=== PATIENT | male | born 1950 | race Hispanic/Latino ===

== ENCOUNTER 2019-08-03 09:15 | Observation (INO) | payer OTHER ==
[2019-08-03] MEDS ORDERED: NA CHLORIDE 0.9% 1,000 ML ONE (10:18)
[2019-08-03] MEDS ORDERED: MORPHINE 4 MG/ML SYR ONE (10:18)
[2019-08-03] MEDS ORDERED: ONDANSETRON 4 MG/2 ML VIAL ONE ×2 (10:18→13:43)
[2019-08-03] MEDS ORDERED: FAMOTIDINE 20 MG/2 ML VIAL IV ONE (10:18)
[2019-08-03 10:36] LABS: Basophils % 0.1 % (0-1.3); Hematocrit 34.9 % (39.6-49.0); MPV 7.4 fL (7.6-11.3); RBC Red Blood Cell Count 4.12 M/uL (4.33-5.43)
[2019-08-03 10:52] LABS: Albumin 3.8 g/dL (3.4-5.0); Bilirubin Direct 0.3 mg/dL (0-0.2); Bilirubin Total 0.6 mg/dL (0.2-1.0); Protein, Total 6.8 g/dL (6.4-8.2)
--- NOTE | 2019-08-03 11:32 | RAD REPORT ---
EXAM DESCRIPTION: CT - Abdomen Pelvis W Contrast - 08/03/2019 11:12 am CLINICAL HISTORY: Abdominal pain COMPARISON: June 2019 TECHNIQUE: Computed axial tomography of the abdomen pelvis was obtained. 100 cc Isovue-300 was admin istered intravenously. Oral contrast was not requested which limits evaluation of bowel. All CT scans are performed using dose optimization technique as appropriate and may include automated exposure control or mA/KV adjustment according to patient size. FINDINGS: No significant change in the bilateral pulmonary nodules/ masses. Some are cavitary. Patho logic fracture involves an anterior mid right rib. Mild right infrahilar lymphadenopathy The liver, spleen, pancreas, adrenals and right kidney appear unremarkable. Small left renal cyst Small gallstones without gallbladder wall thickening The appendix is normal caliber. There is no evidence of diverticulitis . There is no evidence of diverticulitis. IMPRESSION: No significant change in the metastases involving the chest No acute abnormality involving the abdomen/pelvis
[2019-08-03 12:08] LABS: Blood Morphology Comment NOT SEEN (NOT SEEN); Platelet Estimate ADEQ; Toxic Granulation 1+
--- NOTE | 2019-08-03 13:22 | ER ---
Nurse's Notes [facility] Name: Ez Conrad Age: 68 yrs Sex: Male : 1950 Arrival Date: 08/03/2019 Time: 09:18 Bed 4 Private MD: Tremaine Duke Diagnosis: Dehydration;Gastritis, unspecified Presentation: 08/03 09:31 Presenting complaint: Sister reports that patient has had headaches for a while, but la1 this morning he's been experiencing shortness of breath and headache that wont go away. Transition of care: patient was not received from another setting of care. Onset of symptoms was August 03, 2019. Risk Assessment: Do you want to hurt yourself or someone else? Patient reports no desire to harm self or others. Initial Sepsis Screen: Does the patient meet any 2 criteria? No. Patient's initial sepsis screen is negative. Does the patient have a suspected source of infection? No. Patient's initial sepsis screen is negative. Care prior to arrival: None. 09:31 Method Of Arrival: Wheelchair la1 09:31 Acuity: CHRISTIAN 3 la1 Historical: - Allergies: 09:33 No Known Allergies; la1 - PMHx: 10:55 Hypertension; Cancer; sg - Immunization history:: Adult Immunizations up to date. - Social history:: Smoking status: Patient/guardian denies using tobacco, but has a distant history of tobacco abuse. - Ebola Screening: : Patient denies exposure to infectious person Patient denies travel to an Ebola-affected area in the 21 days before illness onset. - Family history:: not pertinent. Screenin:25 Abuse screen: Denies threats or abuse. Denies injuries from another. Nutritional hb screening: No deficits noted. Tuberculosis screening: No symptoms or risk factors identified. Never had TB. Fall Risk None identified. Assessment: 09:40 General: Appears in no apparent distress. well groomed, well developed, well nourished, sg Behavior is calm, cooperative, appropriate for age. Pain: Denies pain. Neuro: Level of Consciousness is awake, alert, obeys commands, Oriented to person, place, time, Moves all extremities. Gait is steady, Speech is normal, Facial symmetry appears normal. Cardiovascular: Heart tones S1 S2 present Patient's skin is warm and dry. Chest pain is denied. Respiratory: Airway is patent Trachea midline Respiratory effort is even, unlabored, a tracheostomy site noted, appears clean, has a cap in place at this time, no drainage noted Breath sounds are clear. GI: Abdomen is flat, non-distended. : No signs and/or symptoms were reported regarding the genitourinary system. EENT: No signs and/or symptoms were reported regarding the EENT system. Derm: Skin is pink, warm \T\ dry. Musculoskeletal: Circulation, motion, and sensation intact. Range of motion: intact in all extremities, Swelling absent. 10:41 Reassessment: Patient appears in no apparent distress at this time. Patient and/or sg family updated on plan of care and expected duration. Pain level reassessed. Patient is alert, oriented x 3, equal unlabored respirations, skin warm/dry/pink. 12:00 Reassessment: Patient appears in no apparent distress at this time. Patient and/or sg family updated on plan of care and expected duration. Pain level reassessed. Patient is alert, oriented x 3, equal unlabored respirations, skin warm/dry/pink. aware of labs at this time, pt to be admitted, no new orders received at this time. 12:40 Reassessment: Patient appears in no apparent distress at this time. Patient and/or sg family updated on plan of care and expected duration. Pain level reassessed. Patient is alert, oriented x 3, equal unlabored respirations, skin warm/dry/pink. 13:40 Reassessment: Patient appears in no apparent distress at this time. Patient and/or sg family updated on plan of care and expected duration. Pain level reassessed. Patient is alert, oriented x 3, equal unlabored respirations, skin warm/dry/pink. 14:30 Reassessment: Patient appears in no apparent distress at this time. Patient and/or sg family updated on plan of care and expected duration. Pain level reassessed. Patient is alert, oriented x 3, equal unlabored respirations, skin warm/dry/pink. Patient states feeling better. Vital Signs: 09:33 BP 140 / 68; Pulse 90; Resp 18; Temp 98.2(TE); Pulse Ox 99% on R/A; Weight 66.68 kg; la1 Height 5 ft. 5 in. (165.10 cm); Pain 3/10; 10:40 BP 139 / 60; Pulse 64; Resp 17; Pulse Ox 99% on R/A; sg 13:00 BP 160 / 70; Pulse 90; Resp 17; Temp 98.1; Pulse Ox 100% on R/A; Pain 2/10; sg 14:18 BP 142 / 66; Pulse 89; Resp 17; Temp 98.2; Pulse Ox 99% on R/A; ss 09:33 Body Mass Index 24.46 (66.68 kg, 165.10 cm) la1 ED Course: 09:18 Patient arrived in ED. mr 09:18 Tremaine Duke DO is Private Physician. mr 09:32 Triage completed. la1 09:33 Arm band placed on right wrist. la1 09:37 Alexandrea Bermeo MD is Attending Physician. ma2 09:40 Patient has correct armband on for positive identification. Placed in gown. Bed in low sg position. Call light in reach. Side rails up X2. cardiac monitor on. Pulse ox on. NIBP on. Warm blanket given. Head of bed elevated. 09:44 Alex Jernigan, CHIARA is Primary Nurse. sg 10:18 Radiology exam delayed due to lab results not completed at this time. (BUN/Creatinine). vm2 10:30 No provider procedures requiring assistance completed. Initial lab(s) drawn, by me, hb sent to lab. Inserted saline lock: 20 gauge in right antecubital area, using aseptic technique. Blood collected. 11:12 CT completed. Patient tolerated procedure well. Patient moved back from CT. vm2 11:13 CT Abd/Pelvis - IV Contrast Only In Process Unspecified. EDMS 12:25 First set of blood cultures drawn by me. dh3 12:40 Second set of blood cultures drawn by me. dh3 13:17 Edgar Maria MD is Hospitalizing Provider. ma2 14:30 Patient admitted, IV remains in place. intact, No redness/swelling at site. sg Administered Medications: 10:23 Drug: Zofran 4 mg Route: IVP; Site: right antecubital; sg 11:00 Follow up: Response: No adverse reaction sg 10:25 Drug: morphine 4 mg Route: IVP; Site: right antecubital; sg 11:00 Follow up: Response: No adverse reaction; Pain is decreased; RASS: Alert and Calm (0) sg 10:30 Drug: NS 0.9% 1000 ml Route: IV; Rate: 1 bolus; Site: right antecubital; sg 11:32 Follow up: Response: No adverse reaction; IV Status: Completed infusion; IV Intake: sg 1000ml 10:30 Drug: Pepcid 20 mg Route: IVP; Site: right antecubital; sg 11:00 Follow up: Response: No adverse reaction sg 13:40 Drug: Pantoprazole 40 mg Route: IVP; Site: right antecubital; sg 14:15 Follow up: Response: No adverse reaction sg 13:40 Drug: Zofran 4 mg Route: IVP; Site: right antecubital; sg 14:15 Follow up: Response: No adverse reaction sg Intake: 11:32 IV: 1000ml; Total: 1000ml. sg Outcome: 13:17 Decision to Hospitalize by Provider. ma2 14:36 Admitted to Tele accompanied by tech, via wheelchair, room 412, with chart, Report sg called to CHIARA Reyes 14:36 Condition: good 14:36 Instructed on the need for admit, medication usage, safety practices, Demonstrated understanding of instructions, follow-up care. 14:38 Patient left the ED. sg Signatures: Dispatcher [employer] EDMS Alex Jernigan RN RN sg Rivera, Mary Xiomy Nick RN RN Johnathan Zapata RN RN la1 Baxter, Heather, RN RN hb McGuire, Victoria vm2 Herrera, Deanna dh3 Alzahri, Mohammad, MD MD nj2
--- NOTE | 2019-08-03 13:22 | EDPHYS ---
Physician Documentation [facility] Name: Ez Conrad Age: 68 yrs Sex: Male : 1950 Arrival Date: 08/03/2019 Time: 09:18 Bed 4 Private MD: Tremaine Duke ED Physician Alexandrea Bermeo HPI: 08/03 10:08 This 68 yrs old Male presents to ER via Wheelchair with complaints of ma2 Breathing Difficulty, Abdominal Pain, Headache. 13:13 Onset: The symptoms/episode began/occurred gradually, 2 day(s) ago. ma2 Historical: - Allergies: 09:33 No Known Allergies; la1 - PMHx: 10:55 Hypertension; Cancer; sg - Immunization history:: Adult Immunizations up to date. - Social history:: Smoking status: Patient/guardian denies using tobacco, but has a distant history of tobacco abuse. - Ebola Screening: : Patient denies exposure to infectious person Patient denies travel to an Ebola-affected area in the 21 days before illness onset. - Family history:: not pertinent. ROS: 13:14 Eyes: Negative for injury, pain, redness, and discharge, Neck: Negative for injury, ma2 pain, and swelling, Cardiovascular: Negative for chest pain, palpitations, and edema, Respiratory: Negative for shortness of breath, cough, wheezing, and pleuritic chest pain, Abdomen/GI: Negative for abdominal pain, nausea, diarrhea, and constipation. 13:14 Constitutional: Positive for malaise, poor PO intake, weight loss. 13:14 All other systems are negative. Exam: 13:14 Constitutional: This is a well developed, well nourished patient who is awake, alert, ma2 and in no acute distress. Eyes: Pupils equal round and reactive to light, extra-ocular motions intact. Lids and lashes normal. Conjunctiva and sclera are non-icteric and not injected. Cornea within normal limits. Periorbital areas with no swelling, redness, or edema. ENT: trach in good order, skin dry.. Nares patent. No nasal discharge, no septal abnormalities noted. Tympanic membranes are normal and external auditory canals are clear. Oropharynx with no redness, swelling, or masses, exudates, or evidence of obstruction, uvula midline. Mucous membranes moist. Neck: Trachea midline, no thyromegaly or masses palpated, and no cervical lymphadenopathy. Supple, full range of motion without nuchal rigidity, or vertebral point tenderness. No Meningismus. Chest/axilla: Normal chest wall appearance and motion. Nontender with no deformity. No lesions are appreciated. Cardiovascular: Regular rate and rhythm with a normal S1 and S2. No gallops, murmurs, or rubs. Normal PMI, no JVD. No pulse deficits. Respiratory: Lungs have equal breath sounds bilaterally, clear to auscultation and percussion. No rales, rhonchi or wheezes noted. No increased work of breathing, no retractions or nasal flaring. Abdomen/GI: Soft, non-tender, with normal bowel sounds. No distension or tympany. No guarding or rebound. No evidence of tenderness throughout. Skin: Warm, dry with normal turgor. Normal color with no rashes, no lesions, and no evidence of cellulitis. MS/ Extremity: Pulses equal, no cyanosis. Neurovascular intact. Full, normal range of motion. Neuro: Awake and alert, GCS 15, oriented to person, place, time, and situation. Cranial nerves II-XII grossly intact. Motor strength 5/5 in all extremities. Sensory grossly intact. Cerebellar exam normal. Normal gait. Vital Signs: 09:33 BP 140 / 68; Pulse 90; Resp 18; Temp 98.2(TE); Pulse Ox 99% on R/A; Weight 66.68 kg; la1 Height 5 ft. 5 in. (165.10 cm); Pain 3/10; 10:40 BP 139 / 60; Pulse 64; Resp 17; Pulse Ox 99% on R/A; sg 13:00 BP 160 / 70; Pulse 90; Resp 17; Temp 98.1; Pulse Ox 100% on R/A; Pain 2/10; sg 14:18 BP 142 / 66; Pulse 89; Resp 17; Temp 98.2; Pulse Ox 99% on R/A; ss 09:33 Body Mass Index 24.46 (66.68 kg, 165.10 cm) la1 MDM: 12:51 Patient medically screened. ma2 13:14 Differential diagnosis: Anemia Bronchitis reactive airway disease, dehydration, ma2 gastritis, discussed with dr. johnson and dr. house. Data reviewed: vital signs, nurses notes. Counseling: I had a detailed discussion with the patient and/or guardian regarding: the historical points, exam findings, and any diagnostic results supporting the discharge/admit diagnosis, the presence of at least one elevated blood pressure reading (>120/80) during this emergency department visit, the need for further work-up and treatment in the hospital. 08/03 10:10 Order name: Basic Metabolic Panel; Complete Time: 11:27 ma2 08/03 10:10 Order name: CBC with Diff; Complete Time: 12:16 ma2 08/03 10:10 Order name: Creatinine for Radiology; Complete Time: 11:28 ma2 08/03 10:10 Order name: Hepatic Function; Complete Time: 11:27 ma2 08/03 10:10 Order name: Lipase; Complete Time: 11:28 ma2 08/03 11:30 Order name: Blood Culture Adult (2) la2 08/03 10:10 Order name: CT Abd/Pelvis - IV Contrast Only; Complete Time: 13:08 la2 08/03 12:08 Order name: Manual Differential; Complete Time: 12:16 EDMS 08/03 13:23 Order name: CBC with Automated Diff EDMS 08/03 13:23 Order name: Comprehensive Metabolic Panel EDMS 08/03 10:10 Order name: IV Saline Lock; Complete Time: 10:35 ma2 08/03 10:10 Order name: Labs collected and sent; Complete Time: 10:36 ma2 08/03 13:23 Order name: CONS Pharmacy Consult EDMI 08/03 13:23 Order name: NPO EDMS Administered Medications: 10:23 Drug: Zofran 4 mg Route: IVP; Site: right antecubital; sg 11:00 Follow up: Response: No adverse reaction sg 10:25 Drug: morphine 4 mg Route: IVP; Site: right antecubital; sg 11:00 Follow up: Response: No adverse reaction; Pain is decreased; RASS: Alert and Calm (0) sg 10:30 Drug: NS 0.9% 1000 ml Route: IV; Rate: 1 bolus; Site: right antecubital; sg 11:32 Follow up: Response: No adverse reaction; IV Status: Completed infusion; IV Intake: sg 1000ml 10:30 Drug: Pepcid 20 mg Route: IVP; Site: right antecubital; sg 11:00 Follow up: Response: No adverse reaction sg 13:40 Drug: Pantoprazole 40 mg Route: IVP; Site: right antecubital; sg 14:15 Follow up: Response: No adverse reaction sg 13:40 Drug: Zofran 4 mg Route: IVP; Site: right antecubital; sg 14:15 Follow up: Response: No adverse reaction sg Disposition: 08/03/19 13:17 Hospitalization ordered by Edgar Maria for Observation. Preliminary diagnosis are Dehydration, Gastritis, unspecified. - Bed requested for Telemetry/MedSurg (observation). - Status is Observation. sg - Condition is Stable. - Problem is new. - Symptoms are unchanged. UTI on Admission? No Signatures: Dispatcher [employer] Naomi Miranda RN RN dw Gay, Steven, RN RN sg Attema, Lee, RN RN la1 Alexandrea Bermeo MD MD ma2 Corrections: (The following items were deleted from the chart) 13:17 13:17 Hospitalization Ordered by Edgar Maria MD for Observation. Preliminary ma2 diagnosis is Dehydration; Gastritis, unspecified. Bed requested for Telemetry/MedSurg (Inpatient). Status is Observation. Condition is Stable. Problem is new. Symptoms are unchanged. UTI on Admission? No. ma2 13:38 13:17 08/03/2019 13:17 Hospitalization Ordered by Edgar Maria MD for Observation. dw Preliminary diagnosis is Dehydration; Gastritis, unspecified. Bed requested for Telemetry/MedSurg (observation). Status is Observation. Condition is Stable. Problem is new. Symptoms are unchanged. UTI on Admission? No. ma2 14:38 13:38 08/03/2019 13:17 Hospitalization Ordered by Edgar Maria MD for Observation. sg Preliminary diagnosis is Dehydration; Gastritis, unspecified. Bed requested for Telemetry/MedSurg (observation). Status is Observation. Condition is Stable. Problem is new. Symptoms are unchanged. UTI on Admission? No. dw
[2019-08-03] MEDS ORDERED: PANTOPRAZOLE 40 MG INJ ONE (13:43)
[2019-08-03 15:21] VITALS: BMI 24.4
[2019-08-03] MEDS: MORPHINE 2 MG/ML SYR IV PRN ×2 (15:42→20:19)
[2019-08-03] MEDS: D5.45NS W/KCL 20MEQ 1,000 ML IV SCH (15:46)
--- NOTE | 2019-08-03 16:22 | P.HP ---
Certification for Inpatient Patient admitted to: Observation With expected LOS: <2 Midnights Patient will require the following post-hospital care: None Practitioner: I am a practitioner with admitting privileges, knowledge of patient current condition, hospital course, and medical plan of care. Services: Services provided to patient in accordance with Admission requirements found in Title 42 Section 412.3 of the Code of Federal Regulations Patient History Date of Service: 08/03/19 Reason for admission: Nausea and headache History of Present Illness: Patient is 68 years of age with throat cancer with mets to the lung he apparently had chemotherapy last Sunday has been very sick since then lack of appetite and some shortness of breath headaches patient has a trach denies any fever chills cough sputum hemoptysis or chest pain no diarrhea white count was very elevated Allergies No Known Allergies Allergy (Verified 05/11/17 10:42) Home Medications: Fenofibrate [Tricor] 145 mg PO DAILY 01/25/16 Metformin HCl [Glucophage] 500 mg PO BIDWM 01/25/16 Pravastatin [Pravachol] 40 mg PO DAILY 01/25/16 Amlodipine [Norvasc*] 5 mg PO DAILY 08/03/19 Levothyroxine [Synthroid*] 112 mcg PO DAILY 08/03/19 Losartan Potassium [Cozaar] 50 mg PO DAILY 08/03/19 - Past Medical/Surgical History Diabetic: Yes -: hypertension -: throat cancer -: tracheostomy -: feeding tuibe insertion - Social History Smoking Status: Former smoker Alcohol use: No CD- Drugs: No Caffeine use: Yes Place of Residence: Home Review of Systems General: Weakness, Malaise Respiratory: Shortness of Breath Gastrointestinal: Nausea Neurological: Weakness Physical Examination - Vital Signs Temperature: 97.1 F Blood Pressure: 169/77 Pulse: 89 Respirations: 18 Pulse Ox (%): 99 - Physical Exam General: Alert, In no apparent distress, Oriented x3 Neck: Supple Respiratory: Clear to auscultation bilaterally, Diminished Cardiovascular: No edema, Normal pulses Gastrointestinal: Normal bowel sounds, Soft and benign Musculoskeletal: No clubbing, No swelling Integumentary: No rashes, No breakdown - Studies Laboratory Data (last 24 hrs) 08/03/19 10:24: Creatinine 0.97 08/03/19 10:24: WBC 49.8 H*, Hgb 12.4 L, Hct 34.9 L, Plt Count 235 11/10/19 10:24: Sodium 135 L, Potassium 3.0 L, BUN 20 H, Creatinine 0.97, Glucose 149 H, Total Bilirubin 0.6, AST 13 L, ALT 13, Alkaline Phosphatase 105, Lipase 53 L Assessment and Plan - Problems (Diagnosis) (1) Adverse effect of chemotherapy Current Visit: Yes Status: Acute Plan: Patient is 68 years of age. Status post chemotherapy on Sunday he has cut throat cancer has a tracheostomy with mets to the lungs complaining of nausea headache lack of appetite patient's white count is significantly elevated chemistries unremarkable no acute abnormalities on CT scan of the abdomen he does have chronic mets to the lungs patient is hypokalemic potassium replacement patient does not want to be resuscitated I have also ordered some Rocephin urinalysis is pending Qualifiers: Encounter type: initial encounter Qualified Code(s): T45.1X5A - Adverse effect of antineoplastic and immunosuppressive drugs, initial encounter Discharge Plan: Home - Advance Directives Does patient have a Living Will: No Does patient have a Durable POA for Healthcare: No - Code Status/Comfort Care Code Status: Do Not Attempt Resuscitat
[2019-08-03] MEDS: CEFTRIAXONE/SWI 1gm 1 GM/10 ML SYR IVP SCH (16:44)
[2019-08-03] MEDS ORDERED: GLUCAGON 1 MG/VIAL IM PRN (16:59)
[2019-08-03] MEDS ORDERED: D50W 25 GM/50 ML SYRINGE/VIAL IV PRN (16:59)
[2019-08-03] MEDS ORDERED: KCL 20 MEQ/100 mL IVPB 20 MEQ/100 ML BAG IV SCH (17:00)
[2019-08-03] MEDS: ONDANSETRON 4 MG/2 ML VIAL IV PRN (19:48)
[2019-08-03 20:25] LABS: Urine Appearance TURBID; Urine Bilirubin NEGATIVE (NEG); Urine Blood NEGATIVE (NEG); Urine Color YELLOW; Urine Glucose 1+ (NEG); Urine Protein NEGATIVE (NEG); Urine Specific Gravity >=1.030 (1.005-1.030); Urine pH 7.5 (5.0-7.0)
[2019-08-03 20:28] LABS: Urine Microscopic Reflex ORDER UMIC
[2019-08-03 20:36] LABS: Urine Amorphous Sediment 1+ /HPF (NONE SEEN); Urine Bacteria >50 /HPF (NONE SEEN); Urine Culture Reflex Order REFLEXED; Urine RBC <5 /HPF (NONE SEEN)
[2019-08-03] MEDS: INSULIN -REGULAR HUMAN 50 UNIT/0.5 ML ML SQ SCH (21:00)
--- NOTE | 2019-08-03 21:16 | P.PN ---
Subjective Date of Service: 08/03/19 Chief Complaint: Nausea and headache Physical Examination - Vital Signs Temperature: 98.2 F Blood Pressure: 131/69 Pulse: 76 Respirations: 22 Pulse Ox (%): 98 - Studies Laboratory Data (last 24 hrs) 08/03/19 10:24: Creatinine 0.97 08/03/19 10:24: WBC 49.8 H*, Hgb 12.4 L, Hct 34.9 L, Plt Count 235 08/03/19 10:24: Sodium 135 L, Potassium 3.0 L, BUN 20 H, Creatinine 0.97, Glucose 149 H, Total Bilirubin 0.6, AST 13 L, ALT 13, Alkaline Phosphatase 105, Lipase 53 L Assessment & Plan Physician Review Additional Text: Impression: Nausea/Headaches with poor intake likely related to Chemotherapy Throat cancer Stage 4 with mets to the lung on Chemotherapy Leukocytosis likely related to recent Chemotherapy DM Type 2 non insulin dependent HTN Hyperlipidemia Hypothyroidism
[2019-08-04] MEDS: MORPHINE 2 MG/ML SYR IV PRN ×3 (00:31→09:41)
[2019-08-04 04:38] LABS: ALT/SGPT 11 U/L (12-78); AST/SGOT 10 U/L (15-37); Albumin 3.3 g/dL (3.4-5.0); Alkaline Phosphatase 127 U/L (45-117); BUN Blood Urea Nitrogen 12 mg/dL (7-18); Bicarbonate 25 mmol/L (21-32); Bilirubin Total 0.6 mg/dL (0.2-1.0); Glucose Level 148 mg/dL (74-106); Potassium 3.2 mmol/L (3.5-5.1); Sodium Level 137 mmol/L (136-145)
[2019-08-04 04:46] LABS: Absolute Lymphocytes (CBC) 0.9 K/uL (0.7-4.9); Basophils % 0.1 % (0-1.3); Hematocrit 30.8 % (39.6-49.0); Lymphocytes % 1.8 % (15.3-44.8); MPV 7.7 fL (7.6-11.3); RBC Red Blood Cell Count 3.61 M/uL (4.33-5.43)
[2019-08-04] MEDS: D5.45NS W/KCL 20MEQ 1,000 ML IV SCH ×2 (05:22→10:00)
[2019-08-04] MEDS: ONDANSETRON 4 MG/2 ML VIAL IV PRN (05:22)
--- OUTSIDE RECORDS SUMMARY | 2019-08-04 07:06 | XMS REPORT ---
:1950 Author Organization [facility] Address [address] [place] [address] Dr. Farrell [address] [place] [id number] Care Team Providers Name Role Phone Unavailable Unavailable Unavailable Problems This patient has no known problems. Allergies, Adverse Reactions, Alerts This patient has no known allergies or adverse reactions. Medications This patient has no known medications. Encounters Start End Encounter Admission Attending Care Care Encounter Date/Time Date/Time Type Type Clinicians Facility Department ID 2019-07-21 2019-07-[address] [facility] [id number] 12:02:00 12:02:00
[2019-08-04] MEDS: INSULIN -REGULAR HUMAN 50 UNIT/0.5 ML ML SQ SCH ×3 (07:30→16:30)
[2019-08-04] MEDS ORDERED: POTASSIUM 25 MEQ EFFERV TAB PO ONE (08:00)
[2019-08-04 08:04] VITALS: O2SAT 97
[2019-08-04] MEDS: CEFTRIAXONE/SWI 1gm 1 GM/10 ML SYR IVP SCH (08:06)
--- NOTE | 2019-08-04 13:56 | P.DS ---
Admission Date: 08/03/19 Discharge Date: 08/04/19 Primary Care Provider: Dr. Duke; Oncology-Dr. Rodrigez Disposition: ROUTINE DISCHARGE Discharge Condition: GOOD Reason for Admission: Nausea and headache Consultations: none Procedures: CT scan: FINDINGS: No significant change in the bilateral pulmonary nodules/ masses. Some are cavitary. Pathologic fracture involves an anterior mid right rib. Mild right infrahilar lymphadenopathy The liver, spleen, pancreas, adrenals and right kidney appear unremarkable. Small left renal cyst Small gallstones without gallbladder wall thickening The appendix is normal caliber. There is no evidence of diverticulitis. There is no evidence of diverticulitis. 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 Patient presented with increased nausea, vomiting and poor oral intake. Patient had chemotherapy recently. Patient appeared dehydrated. Patient came to the ER for further evaluation. Hospital Course: Patient presented with nausea, vomiting and poor appetite. Patient recently had chemotherapy for stage IV throat cancer with metastasis to the lung. Patient found to have elevated white count. Patient received IV fluids. Oral intake was monitored closely. Case discussed with oncology. Chemotherapy has a tendency to cause GI related issues. Patient was observed. Patient now with good oral intake. At discharge patient may continue with Zofran 4 mg 3 times a day as needed for nausea. Recommend follow up with oncology within 1 week. Recommend to recheck lab-CBC, BMP to further monitor. At discharge patient stable for discharge. No significant abdominal pain noted scan unremarkable. Patient with hypertension, diabetes mellitus type 2, [id number], hyperlipidemia and hypothyroidism. Patient will resume his home medications. Vital Signs/Physical Exam: Temp Pulse Resp BP Pulse Ox 97.8 F 75 26 H 157/71 H 100 08/04/19 12:00 08/04/19 12:00 08/04/19 12:00 08/04/19 12:00 08/04/19 12:00 General: Alert, In no apparent distress, Cooperative HEENT: Atraumatic Neck: Other (Neck shows inflammation to the neck region.) Respiratory: Clear to auscultation bilaterally Cardiovascular: Normal pulses, Regular rate/rhythm Gastrointestinal: Normal bowel sounds, Soft and benign, Non-distended Musculoskeletal: No erythema, No tenderness, No warmth Integumentary: No tenderness/swelling, No erythema, No warmth, No cyanosis Laboratory Data at Discharge: WBC 49.4 K/uL (4.3-10.9) H* 08/04/19 03:30 Hgb 10.6 g/dL (13.6-17.9) L 08/04/19 03:30 Hct 30.8 % (39.6-49.0) L 08/04/19 03:30 Plt Count 181 K/uL (152-406) D 08/04/19 03:30 Sodium 137 mmol/L (136-145) 08/04/19 03:30 Potassium 3.2 mmol/L (3.5-5.1) L 08/04/19 03:30 BUN 12 mg/dL (7-18) 08/04/19 03:30 Creatinine 0.74 mg/dL (0.55-1.3) 08/04/19 03:30 Glucose 148 mg/dL (74-106) H 08/04/19 03:30 Total Bilirubin 0.6 mg/dL (0.2-1.0) 08/04/19 03:30 AST 10 U/L (15-37) L 08/04/19 03:30 ALT 11 U/L (12-78) L 08/04/19 03:30 Alkaline Phosphatase 127 U/L (45-117) H 08/04/19 03:30 Lipase 53 U/L (73-393) L 08/03/19 10:24 Home Medications: Fenofibrate [Tricor*] 145 mg PO DAILY 01/25/16 Metformin HCl [Glucophage*] 500 mg PO BIDWM 01/25/16 Pravastatin [Pravachol*] 40 mg PO DAILY 01/25/16 Amlodipine [Norvasc*] 5 mg PO DAILY 08/03/19 Levothyroxine [Synthroid*] 112 mcg PO DAILY 08/03/19 Losartan Potassium [Cozaar] 50 mg PO DAILY 08/03/19 Ondansetron [Zofran] 4 mg PO Q6H PRN #10 tab 08/04/19 New Medications: Ondansetron [Zofran] 4 mg PO Q6H PRN #10 tab PRN Reason: Nausea / Vomiting Patient Discharge Instructions: 1. Recommend follow up with his PCP in 1 week to monitor his progress. 2. Patient presented with nausea, poor intake likely related to recent chemotherapy. Encourage oral intake. Monitor fluid intake. The peak Zofran 4 mg 1 pill 3 times a day as needed for nausea. Recommend recheck lab-CBC, BMP in 1 week to monitor his progress. Recommend follow up with oncology to further address. 3. Patient with history of diabetes, hypertension, hyperlipidemia and hypothyroidism. Patient will resume his home medications. Diet: GI soft diet Activity: Ad rupert Time spent managing pt's care (in minutes): 55
[2019-08-04] MEDS ORDERED: POTASSIUM CL SA 10 MEQ TAB PO ONE (16:34)
[2019-08-04 16:52] VITALS: BP 162/70; TEMP 97.7
[2019-08-04] MEDS ORDERED: METFORMIN HCL 500 MG TAB PO SCH (17:00)
[2019-08-04] MEDS ORDERED: ATORVASTATIN 10 MG TAB PO SCH (21:00)
[2019-08-04] MEDS ORDERED: GLUCERNA SHAKE 237 ML CAN PO SCH (21:00)
[2019-08-05] MEDS ORDERED: LEVOTHYROXINE SOD 0.112 MG TAB PO SCH (06:30)
[2019-08-05] MEDS ORDERED: AMLODIPINE 5 MG TAB PO SCH (09:00)
[2019-08-05] MEDS ORDERED: FENOFIBRATE 160 MG TAB PO SCH (09:00)
[2019-08-05] MEDS ORDERED: LOSARTAN POTASSIUM 50 MG TABLET PO SCH (09:00)
== END 2019-08-04 18:26 | disposition home or self-care (01) ==
LOC: SUPCPDRO 09:15 → ER 09:15 → ERHOLD 13:20 → 4TH 14:19
PROVIDERS: ADMIT Internal Medicine Sleep Medicine; ATTEND Internal Medicine Sleep Medicine
DX: R11.2 Nausea with vomiting, unspecified (principal); R63.0 Anorexia; Z68.24 Body mass index [BMI] 24.0-24.9, adult; C14.0 Malignant neoplasm of pharynx, unspecified; C78.00 Secondary malignant neoplasm of unspecified lung; D72.829 Elevated white blood cell count, unspecified; I10 Essential (primary) hypertension; E11.9 Type 2 diabetes mellitus without complications; E78.5 Hyperlipidemia, unspecified; E03.9 Hypothyroidism, unspecified; Z87.891 Personal history of nicotine dependence
CPT/HCPCS: 96361; 87040 ×2; 87088; 85025 ×2; 87086; 80048; 36415 ×2; 84132; 82947 ×5; 80076; 83605; 83690; 80053; 84145; 74177; 94760 ×2; 96375; 96374; 99285; Q9967; C9113; J2270 ×5; J0696 ×2; J7030; J2405 ×4; G0378 ×3; 81003; 81015

== ENCOUNTER 2019-08-31 10:05 | Inpatient (IN) | payer OTHER ==
--- OUTSIDE RECORDS SUMMARY | 2019-08-31 10:07 | XMS REPORT ---
:1950 [facility] Address [address] [place] [address] Dr. Farrell [address] [place] [id number] Care Team Providers Name Role Phone Unavailable Unavailable Unavailable Problems This patient has no known problems. Allergies, Adverse Reactions, Alerts This patient has no known allergies or adverse reactions. Medications This patient has no known medications. Encounters Start End Encounter Admission Attending Care Care Encounter Date/Time Date/Time Type Type Clinicians Facility Department ID 2019-07-21 2019-07-21 Outpatient [facility] MED [id number] 12:02:00 12:02:00
[2019-08-31] MEDS ORDERED: DIPHENHYDRAMINE 50 MG/ML VIAL ONE (10:56)
[2019-08-31] MEDS ORDERED: NA CHLORIDE 0.9% 1,000 ML ONE ×2 (10:56→11:49)
[2019-08-31] MEDS ORDERED: METOCLOPRAMIDE 10 MG/2mL INJ ONE (10:56)
[2019-08-31] MEDS ORDERED: MORPHINE 4 MG/ML SYR ONE (11:06)
[2019-08-31 11:08] LABS: Absolute Lymphocytes (CBC) 0.5 K/uL (0.7-4.9); Basophils % 0.2 % (0-1.3); Hematocrit 35.6 % (39.6-49.0); Lymphocytes % 0.6 % (15.3-44.8); MPV 7.9 fL (7.6-11.3); RBC Red Blood Cell Count 4.12 M/uL (4.33-5.43)
[2019-08-31 11:33] LABS: Albumin 4.1 g/dL (3.4-5.0); Bilirubin Direct 0.7 mg/dL (0-0.2); Bilirubin Total 1.3 mg/dL (0.2-1.0); Protein, Total 7.1 g/dL (6.4-8.2); Troponin (Emerg Dept Use Only) 0.02 ng/mL (0.0-0.045)
[2019-08-31 11:35] LABS: Potassium 2.1 mmol/L (3.5-5.1)
[2019-08-31] MEDS ORDERED: KCL 20 MEQ/100 mL IVPB 20 MEQ/100 ML BAG IV ONE (11:49)
[2019-08-31 11:57] LABS: Blood Morphology Comment NOTED (NOT SEEN); Platelet Estimate ADEQ
--- NOTE | 2019-08-31 13:13 | EDPHYS ---
Physician Documentation [facility] Name: Ez Conrad Age: 68 yrs Sex: Male : 1950 Arrival Date: 08/31/2019 Time: 10:08 Bed 18 Private MD: ED Physician Rayshawn Matos HPI: 08/31 10:30 This 68 yrs old Male presents to ER via Ambulatory with complaints of jmm Dehydrated. 10:30 This is a 68 year old male with a history of htn, throat cancer that presents to the ED jmm with complaints of vomiting, decreased appetite. Most recent chemotherapy was approx 1 week. Denies fever but complains of chills. Denies abdominal pain. Family states the patient has had decreased appetite. Symptoms are not relieved with home antiemetics. . Historical: - Allergies: 10:18 No Known Allergies; sg - Home Meds: 10:18 Zofran Oral [Active]; Phenergan Oral [Active]; sg - PMHx: 10:18 Cancer; Hypertension; sg - PSHx: 10:18 Tracheostomy; sg - Immunization history:: Adult Immunizations up to date. - Social history:: Smoking status: Patient/guardian denies using tobacco. - Ebola Screening: : Patient negative for fever greater than or equal to 101.5 degrees Fahrenheit, and additional compatible Ebola Virus Disease symptoms Patient denies exposure to infectious person Patient denies travel to an Ebola-affected area in the 21 days before illness onset No symptoms or risks identified at this time. ROS: 10:35 Constitutional: Positive for chills. jmm 10:35 Abdomen/GI: Positive for nausea, vomiting. 10:35 All other systems are negative. Exam: 10:35 Constitutional: This is a well developed, well nourished patient who is awake, alert, jmm and in no acute distress. Head/Face: atraumatic. Eyes: EOMI, no conjunctival erythema appreciated ENT: Moist Mucus Membranes Neck: Trachea midline, Supple Chest/axilla: Normal chest wall appearance and motion. Cardiovascular: Regular rate and rhythm. No edema appreciated Respiratory: Normal respirations, no respiratory distress appreciated Abdomen/GI: Non distended, soft Back: Normal ROM Skin: General appearance color normal MS/ Extremity: Moves all extremities, no obvious deformities appreciated, no edema noted to the lower extremities Neuro: Awake and alert, normal gait Psych: Behavior is normal, Mood is normal, Patient is cooperative and pleasant Vital Signs: 10:21 BP 134 / 69; Pulse 109; Resp 17; Temp 97.2; Pulse Ox 100% on R/A; Weight 52.16 kg (R); sg Pain 0/10; 11:00 BP 177 / 71; Pulse 89; Resp 18; Pulse Ox 97% on R/A; Pain 7/10; em 11:45 BP 147 / 68; Pulse 91; Resp 14; Pulse Ox 96% on 2 lpm NC; Pain 0/10; em 12:30 BP 138 / 77; Pulse 97; Resp 16; Pulse Ox 100% on 2 lpm NC; Pain 0/10; em 13:50 BP 162 / 88; Pulse 98; Resp 16; Pulse Ox 99% on R/A; em 14:15 BP 156 / 74; Pulse 105; Resp 20; Pulse Ox 99% on R/A; Pain 0/10; em 15:25 BP 158 / 83; Pulse 103; Resp 22; Pulse Ox 99% on R/A; em MDM: 10:25 Patient medically screened. [facility] 13:11 Data reviewed: vital signs, nurses notes. Counseling: I had a detailed discussion with [facility] the patient and/or guardian regarding: the historical points, exam findings, and any diagnostic results supporting the discharge/admit diagnosis, lab results, the need for further work-up and treatment in the hospital. ED course: I discussed the patient with Dr. Clinton whom accepted admission. . 08/31 10:26 Order name: Basic Metabolic Panel; Complete Time: 11:36 [facility] 08/31 10:26 Order name: CBC with Diff; Complete Time: 11:58 [facility] 08/31 10:26 Order name: Creatinine for Radiology; Complete Time: 11:17 [facility] 08/31 10:26 Order name: Hepatic Function; Complete Time: 11:36 [facility] 08/31 10:26 Order name: Lipase; Complete Time: 11:36 [facility] 08/31 10:26 Order name: Troponin (emerg Dept Use Only); Complete Time: 11:36 [facility] 08/31 10:26 Order name: Procalcitonin; Complete Time: 11:51 [facility] 08/31 10:26 Order name: Lactate; Complete Time: 11:36 [facility] 08/31 10:26 Order name: Blood Culture Adult (2) [facility] 08/31 10:26 Order name: Flu; Complete Time: 11:00 [facility] 08/31 11:57 Order name: Manual Differential; Complete Time: 11:58 [facility] 08/31 13:04 Order name: Magnesium; Complete Time: 13:37 [facility] 08/31 14:26 Order name: Lactate Sepsis 2 HR Follow-up; Complete Time: 14:27 [facility] 08/31 14:34 Order name: Potassium; Complete Time: 21:47 [facility] 08/31 13:10 Order name: CT Abd/Pelvis - IV Contrast Only; Complete Time: 14:07 [facility] 08/31 14:19 Order name: US Abdomen Limited; Complete Time: 21:47 [facility] 08/31 14:34 Order name: CBC with Automated Diff [facility] 08/31 14:34 Order name: CBC with Automated Diff [facility] 08/31 14:34 Order name: Comprehensive Metabolic Panel [facility] 08/31 14:34 Order name: Comprehensive Metabolic Panel [facility] 08/31 14:34 Order name: Magnesium [facility] 08/31 14:34 Order name: Magnesium [facility] 08/31 14:34 Order name: Magnesium [facility] 08/31 14:38 Order name: Urinalysis W/Microscopic [facility] 08/31 15:40 Order name: Urine Dipstick--Ancillary (enter results) 08/31 10:26 Order name: IV Saline Lock; Complete Time: 10:52 [facility] 08/31 10:26 Order name: Labs collected and sent; Complete Time: 10:52 [facility] 08/31 10:26 Order name: EKG - Nurse/Tech; Complete Time: 10:37 [facility] 08/31 14:34 Order name: CONS Pharmacy Consult [facility] 08/31 14:34 Order name: Clear Liquid [facility] Administered Medications: 11:00 Drug: NS 0.9% 1000 ml Route: IV; Rate: 1 bolus; Site: left antecubital; iw 11:55 Follow up: IV Status: Completed infusion; IV Intake: 1000ml em 11:00 Drug: Reglan 10 mg Route: IVP; Site: left antecubital; iw 11:54 Follow up: Response: No adverse reaction; Nausea is decreased em 11:02 Drug: diphenhydrAMINE 12.5 mg Route: IVP; Site: left antecubital; iw 11:55 Follow up: Response: No adverse reaction; Nausea is decreased em 11:55 Drug: NS 0.9% 1000 ml Route: IV; Rate: 1 bolus; Site: left antecubital; em 13:30 Follow up: IV Status: Completed infusion; IV Intake: 1000ml em 11:55 Drug: Potassium Chloride 20 mEq Route: IV; Rate: calculated rate; Site: left em antecubital; 14:30 Follow up: Response: No adverse reaction; IV Status: Completed infusion; IV Intake: em 100ml 14:30 Drug: Zofran 4 mg Route: IVP; Site: left antecubital; iw 15:10 Follow up: Response: No adverse reaction; Nausea is decreased em 14:49 Drug: D5-NS with KCL 40 mEq/L 1000 ml Route: IV; Rate: bolus; Site: left antecubital; em 15:40 Follow up: Response: No adverse reaction; IV Status: Infusion continued upon admission; em IV Intake: 120ml Disposition: 09/01 08:37 Co-signature as Attending Physician, Rayshawn Matos MD. [facility] Disposition: 08/31/19 13:12 Hospitalization ordered by Polina Clinton for Observation. Preliminary diagnosis are Hypokalemia, Dehydration. - Bed requested for Telemetry/MedSurg (observation). - Status is Observation. em - Condition is Stable. - Problem is an acute exacerbation. - Symptoms have improved. UTI on Admission? No Signatures: Dispatcher [employer] [facility] Naomi You RN RN dw Gay, Steven, RN RN sg Rittger, Kevin, MD MD [facility] Saurabh Hogan PA PA [facility] Jay Campa, COLLEGE BASKETBALL COACH [employer]LEGE BASKETBALL COACH em Kristi Chavarria, Evlira Baltazar RN Corrections: (The following items were deleted from the chart) 08/31 10:36 10:30 This is a 68 year old male with a history of htn, throat cancer that presents to [facility] the ED with complaints of vomiting, decreased appetite. Most recent chemotherapy was approx 1 week. Denies fever but complains of chills. . [facility] 13:54 13:12 Hospitalization Ordered by Polina Clinton MD for Observation. Preliminary eb diagnosis is Hypokalemia; Dehydration. Bed requested for Telemetry/MedSurg (observation). Status is Observation. Condition is Stable. Problem is an acute exacerbation. Symptoms have improved. UTI on Admission? No. jmm 14:43 13:54 08/31/2019 13:12 Hospitalization Ordered by Polina Clinton MD for Observation. dw Preliminary diagnosis is Hypokalemia; Dehydration. Bed requested for Telemetry/MedSurg (observation). Status is Observation. Condition is Stable. Problem is an acute exacerbation. Symptoms have improved. UTI on Admission? No. eb 15:42 14:43 08/31/2019 13:12 Hospitalization Ordered by Polina Clinton MD for Observation. em Preliminary diagnosis is Hypokalemia; Dehydration. Bed requested for Telemetry/MedSurg (observation). Status is Observation. Condition is Stable. Problem is an acute exacerbation. Symptoms have improved. UTI on Admission? No. dw
--- NOTE | 2019-08-31 13:13 | ER ---
Nurse's Notes [facility] Name: Ez Conrad Age: 68 yrs Sex: Male : 1950 Arrival Date: 08/31/2019 Time: 10:08 Bed 18 Private MD: Diagnosis: Hypokalemia;Dehydration Presentation: 08/31 10:16 Presenting complaint: Patient states: feeling weak, reports having vomiting and taking sg zofran/phenergan with no relief at home, decreased appetite as well. Transition of care: patient was not received from another setting of care. Onset of symptoms was August 31, 2019. Risk Assessment: Do you want to hurt yourself or someone else? Patient reports no desire to harm self or others. Initial Sepsis Screen: Does the patient meet any 2 criteria? HR > 90 bpm. No. Patient's initial sepsis screen is negative. Does the patient have a suspected source of infection? No. Patient's initial sepsis screen is negative. Care prior to arrival: None. 10:16 Method Of Arrival: Ambulatory sg 10:16 Acuity: CHRISTIAN 3 sg Historical: - Allergies: 10:18 No Known Allergies; sg - Home Meds: 10:18 Zofran Oral [Active]; Phenergan Oral [Active]; sg - PMHx: 10:18 Cancer; Hypertension; sg - PSHx: 10:18 Tracheostomy; sg - Immunization history:: Adult Immunizations up to date. - Social history:: Smoking status: Patient/guardian denies using tobacco. - Ebola Screening: : Patient negative for fever greater than or equal to 101.5 degrees Fahrenheit, and additional compatible Ebola Virus Disease symptoms Patient denies exposure to infectious person Patient denies travel to an Ebola-affected area in the 21 days before illness onset No symptoms or risks identified at this time. Screenin:30 Abuse screen: Denies threats or abuse. Nutritional screening: No deficits noted. em Tuberculosis screening: No symptoms or risk factors identified. Fall Risk None identified. Assessment: 10:30 General: Appears in no apparent distress. uncomfortable, Behavior is calm, cooperative, em appropriate for age, Reports fever for > 3 days. Pain: Complains of pain in epigastric area Pain currently is 7 out of 10 on a pain scale. Neuro: Level of Consciousness is awake, alert, obeys commands, Oriented to person, place, time, situation, Appropriate for age. Cardiovascular: Denies chest pain, Capillary refill < 3 seconds Patient's skin is warm and dry. Respiratory: Airway is patent Respiratory effort is even, unlabored, Respiratory pattern is regular, symmetrical. GI: Abdomen is flat, Reports nausea, vomiting. Derm: Skin is intact, is healthy with good turgor, Skin is pink, warm \T\ dry. Musculoskeletal: Capillary refill < 3 seconds, Range of motion: intact in all extremities. 11:24 Reassessment: Patient appears in no apparent distress at this time. Patient and/or em family updated on plan of care and expected duration. Pain level reassessed. Patient is alert, oriented x 3, equal unlabored respirations, skin warm/dry/pink. Patient states feeling better. 12:30 Reassessment: Patient appears in no apparent distress at this time. Patient and/or em family updated on plan of care and expected duration. Pain level reassessed. Patient is alert, oriented x 3, equal unlabored respirations, skin warm/dry/pink. Patient denies pain at this time. Patient states feeling better. Patient states symptoms have improved. 13:30 Reassessment: Patient appears in no apparent distress at this time. Patient and/or em family updated on plan of care and expected duration. Pain level reassessed. Patient is alert, oriented x 3, equal unlabored respirations, skin warm/dry/pink. Patient denies pain at this time. 14:10 Reassessment: reports nausea has come back, provider notified. em 15:23 Reassessment: Patient appears in no apparent distress at this time. Patient and/or em family updated on plan of care and expected duration. Pain level reassessed. Patient is alert, oriented x 3, equal unlabored respirations, skin warm/dry/pink. Patient states feeling better. Vital Signs: 10:21 BP 134 / 69; Pulse 109; Resp 17; Temp 97.2; Pulse Ox 100% on R/A; Weight 52.16 kg (R); sg Pain 0/10; 11:00 BP 177 / 71; Pulse 89; Resp 18; Pulse Ox 97% on R/A; Pain 7/10; em 11:45 BP 147 / 68; Pulse 91; Resp 14; Pulse Ox 96% on 2 lpm NC; Pain 0/10; em 12:30 BP 138 / 77; Pulse 97; Resp 16; Pulse Ox 100% on 2 lpm NC; Pain 0/10; em 13:50 BP 162 / 88; Pulse 98; Resp 16; Pulse Ox 99% on R/A; em 14:15 BP 156 / 74; Pulse 105; Resp 20; Pulse Ox 99% on R/A; Pain 0/10; em 15:25 BP 158 / 83; Pulse 103; Resp 22; Pulse Ox 99% on R/A; em ED Course: 10:08 Patient arrived in ED. mr 10:09 Saurabh Hogan PA is PHCP. jmm 10:09 Rayshawn Maots MD is Attending Physician. jmm 10:15 Jay Campa LVN is Primary Nurse. em 10:17 Triage completed. sg 10:17 Arm band placed on. sg 10:30 Patient has correct armband on for positive identification. Bed in low position. Call em light in reach. Adult w/ patient. senior branch manager on. Pulse ox on. NIBP on. 10:45 Inserted saline lock: 20 gauge in left antecubital area, using aseptic technique. Blood em collected. 10:45 Initial lab(s) drawn, by me, sent to lab. First set of blood cultures drawn by me. em 13:12 Polina Clinton MD is Hospitalizing Provider. jmm 13:32 CT Abd/Pelvis - IV Contrast Only In Process Unspecified. EDMS 13:32 CT completed. Patient tolerated procedure well. Patient moved back from CT. mw3 14:40 US Abdomen Limited In Process Unspecified. EDMS 15:20 No provider procedures requiring assistance completed. Patient admitted, IV remains in em place. Administered Medications: 11:00 Drug: NS 0.9% 1000 ml Route: IV; Rate: 1 bolus; Site: left antecubital; iw 11:55 Follow up: IV Status: Completed infusion; IV Intake: 1000ml em 11:00 Drug: Reglan 10 mg Route: IVP; Site: left antecubital; iw 11:54 Follow up: Response: No adverse reaction; Nausea is decreased em 11:02 Drug: diphenhydrAMINE 12.5 mg Route: IVP; Site: left antecubital; iw 11:55 Follow up: Response: No adverse reaction; Nausea is decreased em 11:55 Drug: NS 0.9% 1000 ml Route: IV; Rate: 1 bolus; Site: left antecubital; em 13:30 Follow up: IV Status: Completed infusion; IV Intake: 1000ml em 11:55 Drug: Potassium Chloride 20 mEq Route: IV; Rate: calculated rate; Site: left em antecubital; 14:30 Follow up: Response: No adverse reaction; IV Status: Completed infusion; IV Intake: em 100ml 14:30 Drug: Zofran 4 mg Route: IVP; Site: left antecubital; iw 15:10 Follow up: Response: No adverse reaction; Nausea is decreased em 14:49 Drug: D5-NS with KCL 40 mEq/L 1000 ml Route: IV; Rate: bolus; Site: left antecubital; em 15:40 Follow up: Response: No adverse reaction; IV Status: Infusion continued upon admission; em IV Intake: 120ml Intake: 11:55 IV: 1000ml; Total: 1000ml. em 13:30 IV: 1000ml; Total: 2000ml. em 14:30 IV: 100ml; Total: 2100ml. em 15:40 IV: 120ml; Total: 2220ml. em Outcome: 13:12 Decision to Hospitalize by Provider. phuong 15:20 Admitted to Tele accompanied by tech, family with patient, via wheelchair, room 428, em with chart, Report called to CHIARA Stewart 15:20 Condition: good 15:20 Instructed on the need for admit, Demonstrated understanding of instructions. 15:42 Patient left the ED. em Signatures: Dispatcher [employer] Alex Veras, Suarabh Ho RN, PA PA jmm Rivera, Mary mr Munoz, Jay, RIG MANAGER RIG MANAGER em Kristi Chavarria RN RN iw Willis, Michelle mw3
--- NOTE | 2019-08-31 13:55 | RAD REPORT ---
EXAM DESCRIPTION: CT - Abdomen Pelvis W Contrast - 08/31/2019 1:32 pm CLINICAL HISTORY: abdominal pain COMPARISON: CT abdomen imaging May 03 TECHNIQUE: Biphasic, helical CT imaging of the abdomen and pelvis was performed following 100 ml non -ionic IV contrast. No oral contrast All CT scans are performed using dose optimization technique as appropriate and may include automated exposure control or mA/KV adjustment according to patient size. FINDINGS: Multiple cavitary lesions are seen in the lower lung michel matching the May 03 study. An area of masslike consolidation in the medial left base has resolved and presumed movement and pneu monia. No pleural effusion or pneumothorax. No pericardial effusion. Liver is normal size. No metastatic disease or focal liver lesion identifiable. Spleen and pancreas s how no suspicious findings. Multiple small gallstones are identified. Acute gallbladder process is no t confirmed. No biliary tree dilatation. Renal function is symmetric. No solid mass lesion. Multiple cysts are identified more so on the left. No suspicious parenchymal process. No pyelonephritis findings. Mild nonspecific perinephric strandin g is present no obstructing or nonobstructing calculi. No urinary bladder abnormality. Mild bilateral adrenal gland fullness is present without a discrete mass. No gastric dilatation or wall thickening. No dilated large or small bowel. Active colon process is no t suspected. Sigmoid colon is limited in assessment due to decompressed state. No free air, free fluid or inflammatory stranding. No bulky lymphadenopathy. No omental thickening. Small inferior right groin subcutaneous mass has not changed. No fracture. No clearly pathologic bone process seen. Arterial tree calcifications are present. IMPRESSION: Multiple small gallstones are present but no clearly acute gallbladder process seen. Cor relation can be made with sonography if there are localizing symptoms to the right upper quadrant. Bi liary tree is unremarkable. No acute or GI process identifiable. Multiple cavitary lesions in the lower lung michel match the August 03 imaging. The medial left bas e consolidation seen May 03 has resolved.
[2019-08-31] MEDS ORDERED: D5 NS IV SCH ×2 (14:00)
[2019-08-31] MEDS ORDERED: POTASSIUM CL IV SCH ×2 (14:00)
[2019-08-31] MEDS ORDERED: D5 0.9 NS 1,000 ML with POTASSIUM CL 40 MEQ IV SCH ×2 (14:00)
[2019-08-31] MEDS ORDERED: ONDANSETRON 4 MG/2 ML VIAL ONE (14:25)
[2019-08-31] MEDS ORDERED: ONDANSETRON 4 MG/2 ML VIAL IV PRN (14:26)
[2019-08-31] MEDS ORDERED: HYDRALAZINE HCL 20 MG/ML VIAL IV PRN (14:29)
[2019-08-31] MEDS ORDERED: ALBUTEROL 2.5 MG/3 ML NEB SOL NEB PRN (14:29)
[2019-08-31] MEDS ORDERED: LORAZEPAM 0.5 MG TABLET PO PRN (14:29)
[2019-08-31 15:49] LABS: Urine Blood TRACE (NEG); Urine Glucose 1+ (NEG); Urine Protein NEGATIVE (NEG); Urine Specific Gravity 1.015 (1.005-1.030); Urine pH 7.5 (5.0-7.0)
[2019-08-31] MEDS ORDERED: SCOPOLAMINE HYDROBROMIDE PATCH TD ONE (16:00)
[2019-08-31] MEDS ORDERED: POTASSIUM 25 MEQ EFFERV TAB PO ONE (16:00)
[2019-08-31] MEDS: CEFTRIAXONE/SWI 1gm 1 GM/10 ML SYR IVP SCH (16:03)
--- NOTE | 2019-08-31 16:04 | RAD REPORT ---
EXAM DESCRIPTION: US - Abdomen Exam Limited - 08/31/2019 2:39 pm CLINICAL HISTORY: ABD PAIN COMPARISON: Abdomen Pelvis W Contrast dated 08/31/2019 FINDINGS: Several echogenic sub centimeter sized gallstones are present. These mobile gallstones mat ch the CT study of the same date. There is no wall thickening or pericholecystic fluid. No common duct stone or biliary tree dilatation identified. IMPRESSION: Multi stone cholelithiasis. No acute cholecystitis findings. No biliary tree dilatation or duct stone seen.
[2019-08-31] MEDS: ENOXAPARIN 40 MG/0.4 ML SQ SCH (16:05)
[2019-08-31] MEDS: INSULIN -REGULAR HUMAN 50 UNIT/0.5 ML ML SQ SCH ×2 (16:30→20:30)
[2019-08-31] MEDS: METFORMIN HCL 500 MG TAB PO SCH (16:32)
[2019-08-31 17:31] VITALS: BMI 22.0
[2019-08-31] MEDS: MORPHINE 2 MG/ML SYR IV PRN (21:35)
[2019-08-31] MEDS: KCL 20 MEQ/100 mL IVPB 20 MEQ/100 ML BAG IV SCH ×2 (21:36→23:20)
[2019-08-31] MEDS: D5 0.9 NS 1,000 ML with POTASSIUM CL 40 MEQ IV SCH ×2 (23:19)
--- NOTE | 2019-09-01 01:26 | HP ---
Date of Admission: 08/31/2019 Presenting Complaint: Weakness. History Of Present Illness: Mr. Ez Conrad is a 68-year-old male with a past m edical history of throat cancer, status post indwelling trach collar, pasty taking p.o., who has been on chemo since the last 1 year, but recently restarted on a new cycle 1 week ago. Patient's last ch emo was 2 days ago after which patient developed persistent nausea with vomiting, which was not relie mohini by Zofran, which he was taking at home. He denies any abdominal pain. He denies any abdominal c ramps or diarrhea. He denies any sick contacts at home. He has not been able to tolerate anything. He presented to the ED and on arrival in the ED was noted with tachycardia with heart rate up to 110 s as well as significantly low potassium of 2.1. He denies any muscle weakness. He has been admitte d for potassium correction. Past Medical History: Significant for throat cancer, hypertension, diabetes mellitus. Home Medications: Include losartan, metformin. Allergies: NO KNOWN DRUG ALLERGY. Past Surgical History: Includes trach in C2. Social History: Patient resides in the community with the family. No history of tobacco, alcohol, o r illicit drug use. Family History: No history of throat or abdominal cancer or kidney problem. Review of Systems: All systems reviewed x10, negative except as mentioned above. Patient currently requesting something to eat. Physical Examination: Vital Signs: Current vitals; blood pressure of 134/64, pulse of 110, respiratory rate of 18, O2 satu ration is 95% on room air, temperature afebrile 98.1. General: Average built, middle-aged male, appear older than stated age. HEENT: Head is atraumatic, normocephalic. Pupils equal and reactive to light. Neck: Trach collar in C2. No discharge at the tracheostomy site. Dry oral mucosa. Respiratory: Good air entry bilaterally. No crepitation. Cardiovascular: S1, S2. Rate and rhythm regular. Tachycardic. GI: Abdomen full, soft, nontender. Bowel sounds positive. Guaiac deferred. Extremities: No pedal edema, no calf tenderness. Neuro: Patient is alert, conversant, communicates by writing. Laboratory Data: WBC of 74,000, last was 49,000, hemoglobin 12.4, platelet 221, neutrophils 97% with bands of 3%. Sodium 131, potassium 2.1, bicarb of 28, creatinine 0.9, BUN 28, lactic acid 2.8, repe at of 2.7, magnesium 2.3, total bilirubin of 1.3, AST alkaline phosphatase and ALT normal. Albumin 4 .1. EKG shows sinus tachycardia at 104 beats per minute, borderline QTc. QT prolongation with QTc o f 496 milliseconds. Impression: 1.Severe hypokalemia. 2.Marked leukocytosis. 3.Throat cancer, on chemo. 4.Mild acute renal failure. 5.History of throat cancer. 6.Hypertension. 7.Intractable vomiting. Plan: 1.We will admit patient to observation. We will manage patient for the following. a.Intractable vomiting, likely due to recent start of chemo, unresponsive to p.o. Zofran. We will s tart patient on scopolamine patch. We will admit patient for gentle hydration with current potassium and magnesium level normal. b.Mild acute renal failure. Follow with gentle hydration. c.Leukocytosis of unclear etiology. Patient may have underlying leukemia. We defer to patient's on cologist. d.Hypertension, controlled. We will continue medications for now. IV hydralazine p.r.n. e.DVT prophylaxis. Subcutaneous Lovenox. f.Hypokalemia. We will correct with both p.o. and IV. We will place patient on telemonitor for now . Follow repeat potassium level q.12. Time Spent: Total time spent in review of record, discussion with patient, greater than 60 minutes. Advanced Directives: Patient preferred to be trial of full code. EO/MODL Voice ID: [id number]
[2019-09-01] MEDS: KCL 20 MEQ/100 mL IVPB 20 MEQ/100 ML BAG IV SCH ×3 (01:32→23:57)
[2019-09-01] MEDS: MORPHINE 2 MG/ML SYR IV PRN ×3 (03:44→15:35)
[2019-09-01] MEDS: ONDANSETRON 4 MG/2 ML VIAL IV PRN ×4 (03:48→23:12)
[2019-09-01 05:41] LABS: ALT/SGPT 26 U/L (12-78); AST/SGOT 16 U/L (15-37); Absolute Lymphocytes (CBC) 0.5 K/uL (0.7-4.9); Albumin 3.3 g/dL (3.4-5.0); Alkaline Phosphatase 110 U/L (45-117); BUN Blood Urea Nitrogen 16 mg/dL (7-18); Basophils % 0.1 % (0-1.3); Bicarbonate 27 mmol/L (21-32); Bilirubin Total 0.8 mg/dL (0.2-1.0); Glucose Level 163 mg/dL (74-106); Hematocrit 30.3 % (39.6-49.0); Lymphocytes % 0.7 % (15.3-44.8); MPV 7.7 fL (7.6-11.3); Protein, Total 5.7 g/dL (6.4-8.2); RBC Red Blood Cell Count 3.52 M/uL (4.33-5.43); Sodium Level 135 mmol/L (136-145)
[2019-09-01] MEDS ORDERED: POTASSIUM 25 MEQ EFFERV TAB PO ONE ×3 (06:00→15:09)
[2019-09-01 07:27] LABS: Urine Appearance CLEAR; Urine Bilirubin NEGATIVE (NEG); Urine Blood NEGATIVE (NEG); Urine Color YELLOW; Urine Glucose 2+ (NEG); Urine Protein NEGATIVE (NEG); Urine pH 7.5 (5.0-7.0)
[2019-09-01] MEDS: INSULIN -REGULAR HUMAN 50 UNIT/0.5 ML ML SQ SCH ×4 (07:30→21:00)
[2019-09-01 07:46] LABS: Urine Bacteria 20-50 /HPF (NONE SEEN); Urine RBC NONE SEEN /HPF (NONE SEEN)
[2019-09-01 07:47] LABS: Urine Culture Reflex Order REFLEXED
[2019-09-01] MEDS: HYDRALAZINE HCL 20 MG/ML VIAL IV PRN ×2 (07:56→15:35)
[2019-09-01] MEDS: ENOXAPARIN 40 MG/0.4 ML SQ SCH (07:56)
[2019-09-01] MEDS: CEFTRIAXONE/SWI 1gm 1 GM/10 ML SYR IVP SCH (07:56)
[2019-09-01] MEDS: LEVOTHYROXINE SOD 0.112 MG TAB PO SCH (07:57)
[2019-09-01] MEDS: METFORMIN HCL 500 MG TAB PO SCH ×2 (07:57→16:50)
[2019-09-01 08:13] VITALS: O2SAT 100
--- NOTE | 2019-09-01 08:55 | EKG ---
Test Date: 2019-08-31 Test Time: 10:39:42 Garage Hand: ARMIN MEASUREMENT RESULTS: Intervals: Rate: 106 NH: 124 QRSD: 92 QT: 374 QTc: 496 [place]: P: 79 NH: 124 QRS: 34 T: 85 INTERPRETIVE STATEMENTS: Sinus tachycardia Possible Lateral infarct, age undetermined Abnormal ECG Compared to ECG 05/11/2017 10:58:33 Myocardial infarct finding now present Sinus bradycardia no longer present Electronically Signed On 09-01-19 08:54:35 WALL STEAMER by Merlin Rodriges
[2019-09-01] MEDS: D5 0.9 NS 1,000 ML with POTASSIUM CL 40 MEQ IV SCH ×6 (11:33→21:56)
[2019-09-01] MEDS ORDERED: PHENAZOPYRIDINE 100MG TAB PO ONE (15:17)
--- NOTE | 2019-09-01 15:17 | P.PN ---
Subjective Date of Service: 09/01/19 Chief Complaint: adm for UTI , nx /vx , on chemo for throat ca Subjective: No new changes, C/O voiced (still having abdominal cramps) Review of Systems 10-point ROS is otherwise unremarkable Physical Examination - Vital Signs Temperature: 97.6 F Blood Pressure: 126/61 Pulse: 86 Respirations: 18 Pulse Ox (%): 97 - Physical Exam General: Alert, In no apparent distress HEENT: Normocephalic, PERRLA, Mucous membr. moist/pink, Other (trach insitu ) Neck: Supple, 2+ carotid pulse no bruit Respiratory: Clear to auscultation bilaterally, Normal air movement Cardiovascular: No edema, Normal pulses Gastrointestinal: Normal bowel sounds, Soft and benign, No tenderness Musculoskeletal: No clubbing, No swelling Neurological: Normal speech, Normal strength at 5/5 x4 extr - Studies Laboratory Data (last 24 hrs) 09/01/19 05:30: Potassium Cancelled 09/01/19 05:15: Sodium 135 L, Potassium 3.0 L, BUN 16, Creatinine 0.69, Glucose 163 H, Magnesium 2.0, Total Bilirubin 0.8, AST 16, ALT 26, Alkaline Phosphatase 110 09/01/19 05:15: WBC 66.3 H*, Hgb 10.7 L, Hct 30.3 L, Plt Count 140 L D 08/31/19 19:56: Potassium 2.2 L* Microbiology Data (last 24 hrs): 08/31/19 10:32 Nasopharnyx Influenza Type A Antigen Screen - Final 08/31/19 10:32 Nasopharnyx Influenza Type B Antigen Screen - Final Assessment & Plan Plan to discharge in: Unknown Physician Review: Patient Assessed, Agree with Above Assessment and Plan Physician Review Additional Text: # Abdominal pain/intractable Nausea- may be due to UTI -follow urine cx - c/w Rocephin for now -c/w scopolamine and prn zofran - will add pyridium for abd discomfort # Hypokalemia- improving , c/w IVF and kcl doses # Throat cancer- on chemo # DVT prop- sc heparin
[2019-09-01] MEDS ORDERED: PHENAZOPYRIDINE 100MG TAB PO PRN (23:00)
[2019-09-02] MEDS: D5 0.9 NS 1,000 ML with POTASSIUM CL 40 MEQ IV SCH ×6 (04:36→19:41)
[2019-09-02 05:02] LABS: ALT/SGPT 19 U/L (12-78); AST/SGOT 17 U/L (15-37); Albumin 3.2 g/dL (3.4-5.0); Alkaline Phosphatase 134 U/L (45-117); BUN Blood Urea Nitrogen 11 mg/dL (7-18); Bicarbonate 27 mmol/L (21-32); Bilirubin Total 0.7 mg/dL (0.2-1.0); Glucose Level 152 mg/dL (74-106); Magnesium 2.1 mg/dL (1.8-2.4); Potassium 3.6 mmol/L (3.5-5.1); Protein, Total 5.5 g/dL (6.4-8.2); Sodium Level 135 mmol/L (136-145)
[2019-09-02] MEDS ORDERED: POTASSIUM CL SA 10 MEQ TAB PO ONE (05:10)
[2019-09-02] MEDS: LEVOTHYROXINE SOD 0.112 MG TAB PO SCH (05:31)
[2019-09-02] MEDS: ONDANSETRON 4 MG/2 ML VIAL IV PRN (06:40)
[2019-09-02] MEDS: INSULIN -REGULAR HUMAN 50 UNIT/0.5 ML ML SQ SCH ×4 (07:30→19:41)
[2019-09-02] MEDS ORDERED: MAGNES/ALUMIN/SIMET 30ML UCUP PO ONE (08:59)
[2019-09-02] MEDS: ENOXAPARIN 40 MG/0.4 ML SQ SCH (09:01)
[2019-09-02] MEDS: METFORMIN HCL 500 MG TAB PO SCH ×2 (09:01→16:38)
[2019-09-02] MEDS: CEFTRIAXONE/SWI 1gm 1 GM/10 ML SYR IVP SCH (09:01)
[2019-09-02] MEDS: HYDRALAZINE HCL 20 MG/ML VIAL IV PRN (10:25)
[2019-09-02] MEDS: MORPHINE 2 MG/ML SYR IV PRN ×2 (13:36→19:50)
--- NOTE | 2019-09-02 16:46 | P.DS ---
Admission Date: 09/01/19 Discharge Date: 09/02/19 Disposition: ROUTINE DISCHARGE Reason for Admission: adm for UTI , nx /vx , on chemo for throat ca Brief History of Present Illness: patient on chemo for throat cancer , s/p trach insitu admitted for intractable vomiting and elevated creatinine Hospital Course: Patient admitted for vomiting , and elevated ARF , he was started on IV .He continue to have symptoms but improved with scopolamine patch and empirical abx for UTI although low growth on UA culture . He was also given Maalox and Pepcid for abdominal cramps which improved now . He will follow with his PCP and oncologist for resuming chemo at discharge Vital Signs/Physical Exam: Temp Pulse Resp BP Pulse Ox 97.6 F 80 18 164/68 H 97 09/02/19 16:00 09/02/19 16:00 09/02/19 16:00 09/02/19 16:00 09/02/19 16:00 General: In no apparent distress, Oriented x3 HEENT: Atraumatic, Normocephalic Neck: Supple, 2+ carotid pulse no bruit, JVD not distended, Other (trach insitu , stoma clean ) Respiratory: Clear to auscultation bilaterally, Normal air movement Cardiovascular: No edema, Normal pulses, Regular rate/rhythm Gastrointestinal: Normal bowel sounds, Hypoactive, No tenderness Musculoskeletal: No clubbing, No swelling Integumentary: No rashes, No breakdown Laboratory Data at Discharge: WBC 66.3 K/uL (4.3-10.9) H* 09/01/19 05:15 Hgb 10.7 g/dL (13.6-17.9) L 09/01/19 05:15 Hct 30.3 % (39.6-49.0) L 09/01/19 05:15 Plt Count 140 K/uL (152-406) L D 09/01/19 05:15 Sodium 135 mmol/L (136-145) L 09/02/19 03:44 Potassium 3.6 mmol/L (3.5-5.1) 09/02/19 03:44 BUN 11 mg/dL (7-18) 09/02/19 03:44 Creatinine 0.66 mg/dL (0.55-1.3) 09/02/19 03:44 Glucose 152 mg/dL (74-106) H 09/02/19 03:44 Magnesium 2.1 mg/dL (1.8-2.4) 09/02/19 03:44 Total Bilirubin 0.7 mg/dL (0.2-1.0) 09/02/19 03:44 AST 17 U/L (15-37) 09/02/19 03:44 ALT 19 U/L (12-78) 09/02/19 03:44 Alkaline Phosphatase 134 U/L (45-117) H 09/02/19 03:44 Lipase 44 U/L (73-393) L 08/31/19 10:45 Home Medications: Fenofibrate [Tricor*] 145 mg PO DAILY 01/25/16 Metformin HCl [Glucophage*] 500 mg PO BIDWM 01/25/16 Pravastatin [Pravachol*] 40 mg PO DAILY 01/25/16 Amlodipine [Norvasc*] 5 mg PO DAILY 08/03/19 Levothyroxine [Synthroid*] 112 mcg PO DAILY 08/03/19 Losartan Potassium [Cozaar] 50 mg PO DAILY 08/03/19 Ondansetron [Zofran (Odt)*] 4 mg PO Q6H PRN #10 tab 08/04/19 Bismuth Subsalicylate [Maalox] 15 ml PO QID PRN #120 ml 09/02/19 Famotidine [Pepcid] 20 mg PO BID #60 tablet 09/02/19 Levofloxacin [Levaquin] 500 mg PO DAILY #6 tablet 09/02/19 Scopolamine [Transderm-Scop] 1 each TD EVERY 3RD DAY #7 patch.[id number] 09/02/19 New Medications: Bismuth Subsalicylate [Maalox] 15 ml PO QID PRN #120 ml PRN Reason: Abdominal Cramps Famotidine [Pepcid] 20 mg PO BID #60 tablet Levofloxacin [Levaquin] 500 mg PO DAILY #6 tablet Scopolamine [Transderm-Scop] 1 each TD EVERY 3RD DAY #7 patch.[id number] Patient Discharge Instructions: follow with your PCP Diet: Regular Activity: Ad rupert Physician Review: Patient Assessed, Agree with Above Assessment and Plan Time spent managing pt's care (in minutes): 35
[2019-09-02] MEDS: ENSURE CLEAR 200 ML CAN PO SCH (19:41)
[2019-09-03] MEDS: MORPHINE 2 MG/ML SYR IV PRN (01:19)
[2019-09-03 04:29] LABS: BUN Blood Urea Nitrogen 9 mg/dL (7-18); Bicarbonate 26 mmol/L (21-32); Glucose Level 139 mg/dL (74-106); Potassium 3.4 mmol/L (3.5-5.1); Sodium Level 134 mmol/L (136-145)
[2019-09-03] MEDS: D5 0.9 NS 1,000 ML with POTASSIUM CL 40 MEQ IV SCH ×4 (05:38→11:12)
[2019-09-03] MEDS: LEVOTHYROXINE SOD 0.112 MG TAB PO SCH (05:38)
[2019-09-03] MEDS: INSULIN -REGULAR HUMAN 50 UNIT/0.5 ML ML SQ SCH ×2 (07:30→11:30)
[2019-09-03] MEDS ORDERED: POTASSIUM CL SA 10 MEQ TAB PO ONE (08:00)
[2019-09-03] MEDS: METFORMIN HCL 500 MG TAB PO SCH (08:23)
[2019-09-03] MEDS: ENOXAPARIN 40 MG/0.4 ML SQ SCH (08:23)
[2019-09-03] MEDS: HYDRALAZINE HCL 20 MG/ML VIAL IV PRN (08:24)
[2019-09-03] MEDS: CEFTRIAXONE/SWI 1gm 1 GM/10 ML SYR IVP SCH (08:24)
[2019-09-03] MEDS: ENSURE CLEAR 200 ML CAN PO SCH (08:25)
[2019-09-03 12:10] VITALS: BP 126/60; TEMP 97.4
== END 2019-09-03 12:30 | disposition home or self-care (01) | DRG 690 ==
LOC: ER 10:05 → ERHOLD 14:28 → 4TH 15:28 → OBSVTOIN 09-01 08:04
PROVIDERS: ADMIT Internal Medicine; ATTEND Internal Medicine
DX: N39.0 Urinary tract infection, site not specified (principal); N17.9 Acute kidney failure, unspecified; E87.6 Hypokalemia; D72.829 Elevated white blood cell count, unspecified; C14.0 Malignant neoplasm of pharynx, unspecified; I10 Essential (primary) hypertension; R11.10 Vomiting, unspecified; Z93.0 Tracheostomy status; E11.9 Type 2 diabetes mellitus without complications
CPT/HCPCS: 36415; 74177; 76705; 80048; 80053; 80076; 81001; 81003; 82947; 83605; 83690; 83735; 84132; 84145; 84484; 85025; 87040; 87086; 87088; 87804; 93005; 96361; 96365; 96366; 96375; 99285; G0378; J0360; J0696; J1200; J1650; J2270; J2405; J2765; J7030; J7042; Q9967

== ENCOUNTER 2019-09-24 11:56 | Emergency (ER) | payer OTHER ==
--- OUTSIDE RECORDS SUMMARY | 2019-09-24 11:58 | XMS REPORT ---
:1950 [facility] Address [address] [place] [address] Dr. Farrell [address] [place] [id number] Care Team Providers Name Role Phone Unavailable Unavailable Unavailable Problems This patient has no known problems. Allergies, Adverse Reactions, Alerts This patient has no known allergies or adverse reactions. Medications This patient has no known medications. Encounters Start End Encounter Admission Attending Care Care Encounter Date/Time Date/Time Type Type Clinicians Facility Department ID 2019-07-21 2019-07-21 Outpatient [facility] MED [id number] 12:02:00 12:02:00
[2019-09-24] MEDS ORDERED: NA CHLORIDE 0.9% 1,000 ML ONE (12:33)
[2019-09-24 12:56] LABS: Absolute Lymphocytes (CBC) 0.6 K/uL (0.7-4.9); Basophils % 0.6 % (0-1.3); Hematocrit 34.2 % (39.6-49.0); Lymphocytes % 7.2 % (15.3-44.8); MPV 7.3 fL (7.6-11.3); Protime INR 1.19
[2019-09-24 13:06] LABS: Albumin 3.7 g/dL (3.4-5.0); Bilirubin Total 0.7 mg/dL (0.2-1.0); Potassium 4.1 mmol/L (3.5-5.1); Protein, Total 6.9 g/dL (6.4-8.2)
--- NOTE | 2019-09-24 14:59 | ER ---
Nurse's Notes [facility] Name: Ez Conrad Age: 69 yrs Sex: Male : 1950 Arrival Date: 09/24/2019 Time: 11:59 Bed 27 Private MD: Diagnosis: Dehydration-mild;Acquired deformity of neck-neck tumor Presentation: 09/24 12:02 Presenting complaint: Patient states: today started bleeding from his scabs in his sv neck, has had this problem mx times before. Transition of care: patient was not received from another setting of care. Onset of symptoms was September 24, 2019. Risk Assessment: Do you want to hurt yourself or someone else? Patient reports no desire to harm self or others. Care prior to arrival: None. 12:02 Method Of Arrival: Ambulatory sv 12:02 Acuity: CHRISTIAN 4 sv 15:16 Initial Sepsis Screen: Does the patient meet any 2 criteria?. em 15:16 Initial Sepsis Screen: Does the patient have a suspected source of infection? Yes: Skin em breakdown/wound. Historical: - Allergies: 12:03 No Known Allergies; sv - PMHx: 12:03 Cancer; Hypertension; sv - PSHx: 12:03 Tracheostomy; sv - Social history:: Patient/guardian denies using alcohol, street drugs, The patient lives with family. - Family history:: not pertinent. Screenin:30 Abuse screen: Denies threats or abuse. Nutritional screening: No deficits noted. em Tuberculosis screening: No symptoms or risk factors identified. Fall Risk None identified. Assessment: 12:30 General: Appears in no apparent distress. comfortable, Behavior is calm, cooperative, em Denies fever. Pain: Complains of pain in right posterior aspect of neck and right lateral aspect of neck Pain currently is 4 out of 10 on a pain scale. Neuro: Level of Consciousness is awake, alert, obeys commands, Oriented to person, place, time, situation, Appropriate for age. Cardiovascular: Capillary refill < 3 seconds Patient's skin is warm and dry. Respiratory: Airway is patent Respiratory effort is even, unlabored, Respiratory pattern is regular, symmetrical, Denies shortness of breath. GI: Patient currently denies nausea, vomiting. Derm: Skin is intact, Skin is pink, warm \T\ dry. Wound noted right lateral aspect of neck and right anterior aspect of neck Wound is being treated for cancer, has had wound for several months, will bleed slightly but was told it was fine by primary care doctor. Musculoskeletal: Capillary refill < 3 seconds, Range of motion: intact in all extremities. 13:15 Reassessment: Patient appears in no apparent distress at this time. Patient and/or em family updated on plan of care and expected duration. Pain level reassessed. Patient is alert, oriented x 3, equal unlabored respirations, skin warm/dry/pink. 14:58 Reassessment: Patient appears in no apparent distress at this time. Patient and/or em family updated on plan of care and expected duration. Pain level reassessed. Patient is alert, oriented x 3, equal unlabored respirations, skin warm/dry/pink. Vital Signs: 12:03 BP 83 / 53; Pulse 68; Resp 16; Pulse Ox 100% ; Weight 58.97 kg; Height 5 ft. 5 in. sv (165.10 cm); 12:38 BP 93 / 56; Pulse 63; Resp 18; Pulse Ox 100% on R/A; Pain 4/10; em 13:00 BP 100 / 52; Pulse 62; Resp 18; Pulse Ox 100% on R/A; em 13:04 Temp 98.2(O); em 14:00 BP 107 / 51; Pulse 56; Resp 18; Pulse Ox 99% on R/A; em 15:00 BP 129 / 68; Pulse 63; Resp 18; Pulse Ox 99% on R/A; em 12:03 Body Mass Index 21.63 (58.97 kg, 165.10 cm) sv ED Course: 11:59 Patient arrived in ED. as 12:02 Triage completed. sv 12:03 Arm band placed on. sv 12:05 Alexandrea Bermeo MD is Attending Physician. ma2 12:17 Jay Campa LVN is Primary Nurse. em 12:30 Patient has correct armband on for positive identification. Placed in gown. Bed in low em position. Call light in reach. Side rails up X2. Adult w/ patient. Pulse ox on. NIBP on. 12:35 Initial lab(s) drawn, by me, sent to lab. Inserted saline lock: 20 gauge in right em antecubital area, using aseptic technique. Blood collected. 14:58 No provider procedures requiring assistance completed. IV discontinued, intact, em bleeding controlled, No redness/swelling at site. Pressure dressing applied. Administered Medications: 12:42 Drug: NS 0.9% 1000 ml Route: IV; Rate: 1 bolus; Site: right antecubital; em 14:59 Follow up: IV Status: Completed infusion; IV Intake: 1000ml em Intake: 14:59 IV: 1000ml; Total: 1000ml. em Outcome: 14:58 Discharge ordered by MD. alvarez 15:15 Discharged to home ambulatory, with family. em 15:15 Condition: good 15:15 Discharge instructions given to patient, family, Instructed on discharge instructions, follow up and referral plans. medication usage, wound care, Demonstrated understanding of instructions, follow-up care, medications, wound care, Prescriptions given X 1. 15:16 Patient left the ED. em Signatures: Sheryl Rhodes, RN RN Jay Espinoza, INFORMATION SYSTEMS PROJECT MANAGER INFORMATION SYSTEMS PROJECT MANAGER em Shelby Parra Mohammad, MD MD ma2
--- NOTE | 2019-09-24 15:00 | EDPHYS ---
Physician Documentation [facility] Name: Ez Conrad Age: 69 yrs Sex: Male : 1950 Arrival Date: 09/24/2019 Time: 11:59 Bed 27 Private MD: ED Physician Alexandrea Bermeo HPI: 09/24 14:33 This 69 yrs old Male presents to ER via Ambulatory with complaints of Wound ma2 Check. 14:33 Patient presents to ED for recheck of: mildly bleeding that stopped . The affected area ma2 is on the neck. The patient has experienced similar episodes in the past. . Historical: - Allergies: 12:03 No Known Allergies; sv - PMHx: 12:03 Cancer; Hypertension; sv - PSHx: 12:03 Tracheostomy; sv - Social history:: Patient/guardian denies using alcohol, street drugs, The patient lives with family. - Family history:: not pertinent. ROS: 14:33 Constitutional: Negative for fever, chills, and weight loss. ma2 14:33 All other systems are negative. Exam: 14:33 Constitutional: This is a well developed, well nourished patient who is awake, alert, ma2 and in no acute distress. Head/Face: Normocephalic, atraumatic. Eyes: Pupils equal round and reactive to light, extra-ocular motions intact. Lids and lashes normal. Conjunctiva and sclera are non-icteric and not injected. Cornea within normal limits. Periorbital areas with no swelling, redness, or edema. ENT: right external neck solid mass with red necrotic skin, no active bleeding, tracheostomy in good order has no induration. Nares patent. No nasal discharge, no septal abnormalities noted. Tympanic membranes are normal and external auditory canals are clear. Oropharynx with no redness or evidence of obstruction, uvula midline. Mucous membranes moist. Neck: Trachea midline, no thyromegaly or masses palpated, and no cervical lymphadenopathy. Supple, full range of motion without nuchal rigidity, or vertebral point tenderness. No Meningismus. Chest/axilla: Normal chest wall appearance and motion. Nontender with no deformity. No lesions are appreciated. Cardiovascular: Regular rate and rhythm with a normal S1 and S2. No gallops, murmurs, or rubs. Normal PMI, no JVD. No pulse deficits. Respiratory: Lungs have equal breath sounds bilaterally, clear to auscultation and percussion. No rales, rhonchi or wheezes noted. No increased work of breathing, no retractions or nasal flaring. Abdomen/GI: Soft, non-tender, with normal bowel sounds. No distension or tympany. No guarding or rebound. No evidence of tenderness throughout. Vital Signs: 12:03 BP 83 / 53; Pulse 68; Resp 16; Pulse Ox 100% ; Weight 58.97 kg; Height 5 ft. 5 in. sv (165.10 cm); 12:38 BP 93 / 56; Pulse 63; Resp 18; Pulse Ox 100% on R/A; Pain 4/10; em 13:00 BP 100 / 52; Pulse 62; Resp 18; Pulse Ox 100% on R/A; em 13:04 Temp 98.2(O); em 14:00 BP 107 / 51; Pulse 56; Resp 18; Pulse Ox 99% on R/A; em 15:00 BP 129 / 68; Pulse 63; Resp 18; Pulse Ox 99% on R/A; em 12:03 Body Mass Index 21.63 (58.97 kg, 165.10 cm) sv MDM: 12:05 Patient medically screened. ma2 14:33 Differential diagnosis: necrotizing, tumor. Data reviewed: vital signs, nurses notes. ma2 Counseling: I had a detailed discussion with the patient and/or guardian regarding: the historical points, exam findings, and any diagnostic results supporting the discharge/admit diagnosis, the presence of at least one elevated blood pressure reading (>120/80) during this emergency department visit, the need for outpatient follow up, patient has no active bleeding, would like him to be admitted, however i explained that there is no medical need/indication for admission, given he is able to talk po, not dehydrated, normal vs, airway intact and he needs to follow up with wound care and his oncologist and ent doctors and pcp . 09/24 12:26 Order name: CBC with Diff; Complete Time: 13:02 ma2 09/24 12:26 Order name: CMP; Complete Time: 13:07 ma2 09/24 12:26 Order name: PT-INR; Complete Time: 13:02 co2 09/24 13:06 Order name: Dressing - Wound: with topical thrombin application or gelfoam/surgifoam; ma2 Complete Time: 14:56 Administered Medications: 12:42 Drug: NS 0.9% 1000 ml Route: IV; Rate: 1 bolus; Site: right antecubital; em 14:59 Follow up: IV Status: Completed infusion; IV Intake: 1000ml em Disposition: 09/24/19 14:58 Discharged to Home. Impression: Dehydration - mild, Acquired deformity of neck - neck tumor . - Condition is Stable. - Discharge Instructions: Wound Care. - Prescriptions for Gelfoam - apply 1 application by TOPICAL route 3 times per wk; 30 Container. - Medication Reconciliation Form, Thank You Letter, Antibiotic Education, Prescription Opioid Use form. - Follow up: Private Physician; When: Wound care center; Reason: Continuance of care. Signatures: Dispatcher [employer] Sheryl Mitchell, CHIARA RN Jay Espinoza, CABIN OUTFITTER CABIN OUTFITTER Alexandrea Kaufman MD MD ma2 Corrections: (The following items were deleted from the chart) 15:16 14:58 09/24/2019 14:58 Discharged to Home. Impression: Dehydration - mild; Acquired em deformity of neck - neck tumor . Condition is Stable. Discharge Instructions: Wound Care. Prescriptions for Gelfoam - apply 1 application by TOPICAL route 3 times per wk; 30 Container. and Forms are Medication Reconciliation Form, Thank You Letter, Antibiotic Education, Prescription Opioid Use. Follow up: Private Physician; When: Wound care center; Reason: Continuance of care. ma2
[2019-09-24 15:28] VITALS: TEMP 98.2
[2019-09-24 15:29] VITALS: O2SAT 99
[2019-09-24 15:30] VITALS: BP 129/68
== END 2019-09-24 15:16 | disposition home or self-care (01) ==
LOC: ER 11:56
DX: E86.0 Dehydration (principal); I10 Essential (primary) hypertension; D49.89 Neoplasm of unspecified behavior of other specified sites
CPT/HCPCS: 96361; 85025; 36415; 85610; 80053; 96360; 99284; J7030